=== PATIENT | male | born 1960 | race Caucasian/White ===

== ENCOUNTER → 2024-03-27 12:19 | Outpatient (REF) | payer BC, SELFPAY ==
--- NOTE | 2024-03-27 13:34 | CARDSERVDEF ---
Echocardiogram with Definity completed after protocol screening completed. Allergies verified.
Patent IV site: _R antecube____
IV site flushed with 0.9% NaCl pre and post administration.
Diluted bolus method utilized to enhance visualization of ventricular cornejo.
Total volume given: _4___ mL
Patient tolerated all procedures well without complications.
== END ==
LOC: HWRCS 12:19
PROVIDERS: ATTENDING PHYSICIAN Internal Medicine Cardiovascular Disease; FAMILY PHYSICIAN Family Medicine
DX: I25.10 Atherosclerotic heart disease of native coronary artery without angina pectoris (principal); I49.01 Ventricular fibrillation
CPT/HCPCS: 93306; Q9957